=== PATIENT | male | born 1980 | race African-American/Black ===

== ENCOUNTER 2018-06-26 12:47 | Emergency (ER) | payer SELFPAY ==
[~2018-06-26] VITALS: Ht 167.6 cm; Wt 80.0 kg
[2018-06-26 14:54] LABS: HEMATOCRIT 44.1 % (39.0-50.0); HEMOGLOBIN 15.7 g/dl (14.0-18.0); IMMATURE GRANULOCYTES 0.6 % (0.0-5.0); MEAN CORPUSCULAR HGB CONC 35.6 g/L CALC (32.0-36.0); NEUT# 15.86 thou/uL (1.82-7.42); RED BLOOD COUNT 5.07 mill/uL (4.70-6.10)
[2018-06-26 15:09] LABS: ALBUMIN 5.3 g/dL (3.2-5.0); ALKALINE PHOSPHATASE 69 u/l (38-126); ANION GAP 18 (6-22 (CALC)); BILIRUBIN, TOTAL 0.6 mg/dL (0.0-1.4); BUN 22 mg/dL (9-20); BUN/CREATININE RATIO 18 (12-20 (CALC)); CARBON DIOXIDE 24 mmol/l (22-30); CHLORIDE 102 mmol/l (95-108); CREATININE 1.3 mg/dL (0.7-1.3); GFR > 60 ML/MIN (>=60 (CALC)); GFR FOR AFR.AMER. > 60 ML/MIN (>=60 (CALC)); POTASSIUM 3.7 mmol/l (3.5-5.1); SGOT/AST 101 u/l (17-59); SODIUM 141 mmol/l (137-146); TOTAL PROTEIN 9.8 g/dL (6.3-8.2)
[2018-06-26] MEDS ORDERED: PHENERGAN25 MG/TAB PO (16:37)
[2018-06-26 16:40] VITALS: BP 145/99
== END 2018-06-26 16:43 | disposition home or self-care (01) | DRG 392 ==
LOC: ED 12:47
PROVIDERS: Family Medicine
DX: R11.2 Nausea with vomiting, unspecified (principal); R19.7 Diarrhea, unspecified

== ENCOUNTER 2018-12-10 11:11 | Emergency (ER) | payer SELFPAY ==
[~2018-12-10] VITALS: Ht 167.6 cm; Wt 85.0 kg
[~2018-12-10 11:11] MED LIST: PHENERGAN25 MG/TAB PO
[2018-12-10 11:42] LABS: HEMATOCRIT 40.2 % (39.0-50.0); IMMATURE GRANULOCYTES 0.5 % (0.0-5.0); MEAN CELL VOLUME 91.2 fL CALC (80.0-100.0); MEAN CORPUSCULAR HGB 31.1 pG CALC (26.0-32.0); MEAN CORPUSCULAR HGB CONC 34.1 g/L CALC (32.0-36.0); NEUT# 9.16 thou/uL (1.82-7.42); RED BLOOD COUNT 4.41 mill/uL (4.70-6.10); RED CELL DISTRI WIDTH 12.4 % (11.5-15.5)
[2018-12-10 11:45] LABS: HEMOGLOBIN 13.7 g/dl (14.0-18.0)
[2018-12-10 11:52] VITALS: BP 136/83
[2018-12-10 11:55] LABS: ALBUMIN 4.7 g/dL (3.2-5.0); ALKALINE PHOSPHATASE 77 u/l (38-126); ANION GAP 15 (6-22 (CALC)); BILIRUBIN, TOTAL 0.6 mg/dL (0.0-1.4); BUN 11 mg/dL (9-20); BUN/CREATININE RATIO 11 (12-20 (CALC)); CARBON DIOXIDE 24 mmol/l (22-30); CHLORIDE 109 mmol/l (95-108); ETHYL ALCOHOL 0 mg/dl (0-30); GFR > 60 ML/MIN (>=60 (CALC)); GFR FOR AFR.AMER. > 60 ML/MIN (>=60 (CALC)); LIPASE 123 u/l (23-300); POTASSIUM 4.2 mmol/l (3.5-5.1); SGOT/AST 30 u/l (17-59); SODIUM 144 mmol/l (137-146)
== END 2018-12-10 11:48 | disposition left against medical advice (07) | DRG 894 ==
LOC: ED 11:11
PROVIDERS: Family Medicine
DX: F11.23 Opioid dependence with withdrawal (principal); R11.2 Nausea with vomiting, unspecified; R19.7 Diarrhea, unspecified; R53.1 Weakness; R50.9 Fever, unspecified; R61 Generalized hyperhidrosis; Z91.19 Patient's noncompliance with other medical treatment and regimen